=== PATIENT | male | born 1970 | race Caucasian/White ===

== ENCOUNTER 2024-05-10 09:42 | Day surgery (SDC) | payer MEDICARE, BC ==
[2024-05-06 16:04] VITALS: BMI 25.0
[~2024-05-10 09:42] MED LIST: EPINEPHrine 0.3 MG in Ophthalmic Irrigation Solution 500 ML IRR SCH
[2024-05-10] MEDS ORDERED: PHENYLephrine 2.5% Ophth Soln 15 ml Bottle ONE (10:10)
[2024-05-10] MEDS ORDERED: Cyclopentolate 1% Opth Drop 2 ML BOT ONE (10:10)
[2024-05-10] MEDS ORDERED: Midazolam HCl 2 mg/2 ml Vial ONE (11:08)
[2024-05-10] MEDS ORDERED: fentaNYL 50 mcg/mL 1 mL Vial ONE (11:08)
[2024-05-10] MEDS ORDERED: PROPOFOL 20 ML ONE (11:09)
[2024-05-10] MEDS ORDERED: Bupivacaine 0.75% 10 ML VIAL ONE (11:24)
[2024-05-10] MEDS ORDERED: Lidocaine 4% PF 5 ML AMP ONE (11:24)
[2024-05-10] MEDS ORDERED: Lidocaine 1% PF 5 ML VIAL ONE (11:24)
[2024-05-10] MEDS ORDERED: CEFAZOLIN 1 GM VIAL ONE (11:24)
[2024-05-10] MEDS ORDERED: Triamcinolone 40 MG/ML VIAL ONE (11:24)
[2024-05-10] MEDS ORDERED: Maxitrol 0.1% Opth Oint 3.5 GM TUBE ONE (11:24)
== END 2024-05-10 13:04 | disposition home or self-care (01) ==
LOC: SDC 09:42
PROVIDERS: ATTEND Ophthalmology Retina Specialist
PROC: 08T43ZZ Resection of Right Vitreous, Percutaneous Approach (ICD-10-PCS; principal; 2024-05-10)
DX: T85.398A Other mechanical complication of other ocular prosthetic devices, implants and grafts, initial encounter (principal); I10 Essential (primary) hypertension; M79.7 Fibromyalgia; G62.9 Polyneuropathy, unspecified; Z90.89 Acquired absence of other organs; Z90.49 Acquired absence of other specified parts of digestive tract; Z91.011 Allergy to milk products; Z91.040 Latex allergy status; Y83.1 Surgical operation with implant of artificial internal device as the cause of abnormal reaction of the patient, or of later complication, without mention of misadventure at the time of the procedure
CPT/HCPCS: 67036; J0171; J0690; J2250; J2704; J3010; J3301; J3490